=== PATIENT | male | born 1945 | race Caucasian/White ===

== ENCOUNTER 2022-10-23 18:41 | Observation (INO) | payer OTHER, SELFPAY ==
[2022-10-23 18:45] VITALS: BP 134/78; PULSE 63; RESP 18; TEMP 36.8; O2SAT 99; BMI 29.8
--- NOTE | 2022-10-23 19:19 | CRLHL7_ITS ---
For Patients: As a result of the Century Cures Act, medical imaging exams and procedure reports are released immediately into your electronic medical record. You may view this report before your referring provider. If you have questions, please contact your health care provider. Indication: Fall 1 week ago and new right hip hematoma, pain Technique: CT of the right hip with 98 cc of Isovue 370 IV contrast Please note that all CT scans at this facility use dose modulation, iterative reconstruction, and/or weight-based dosing when appropriate to reduce radiation dose to as low as reasonably achievable. Comparison: None. Findings: 4.2 x 6.7 x 14 cm fusiform complex fluid collection lateral to the right iliac bone. There is a blush of contrast within the superior aspect of the collection (axial image 31 and coronal image 64) compatible with active extravasation, likely venous in origin. There is overlying soft tissue stranding. No acute fracture. Normal alignment. Degenerative changes of the hips, lower lumbar spine, and pubic symphysis. No erosive osseous lesion. Prostatomegaly. Normal appendix. Atherosclerotic calcification. Impression: Large 4.2 x 6.7 x 14 cm hematoma lateral to the right iliac bone. Focal blush of contrast within the superior aspect of the collection is compatible with active extravasation, likely venous in origin. No underlying fracture. Please note that all CT scans at this facility use dose modulation, iterative reconstruction, and/or weight-based dosing when appropriate to reduce radiation dose to as low as reasonably achievable. Dictated by Leobardo Recinos MD @ 10/23/2022 10:08:56 PM (Electronically Signed)
[2022-10-23] MEDS: 0.9 % SODIUM CHLORIDE 1000 ml 1,000 ML IV (19:54)
[2022-10-23 19:55] LABS: Hemoglobin* 15.4 gm/dL (13.5-17.5)
[2022-10-23 20:12] LABS: INR 1.24 (0.91-1.10); Partial Thromboplastin Time* 31 Seconds (23-33); Prothrombin Time 16.4 Seconds
[2022-10-23 20:18] LABS: Chloride* 109 mmol/L (96-114); Potassium* 4.6 mmol/L (3.6-5.1); Sodium* 139 mmol/L (135-149)
[2022-10-23 20:21] LABS: Blood Urea Nitrogen* 28 mg/dL (7-30); Calcium* 8.8 mg/dL (8.4-10.6); Carbon Dioxide* 24 mmol/L (20-32); Creatinine* 1.1 mg/dL (0.5-1.5); Est. Creatinine Clearance* 58.99; Estimated Glomerular Filt Rate 70 ml/min; Glucose* 135 mg/dL (60-115)
--- NOTE | 2022-10-23 22:55 | ED.LOWEXIN ---
HPI - Extremity Injury (Lower) General Chief Complaint: Hip Injury/Pain Stated Complaint: hip pain Time Seen by Provider: 10/23/22 18:49 History of Present Illness HPI Narrative: 76-year-old man presenting to the emergency department with intense achy right hip area pain that developed fairly suddenly this evening after driving home from being out to eat. Recalls a fall last week down the back steps which were somewhat frosted over. The only injury he thought he really sustained from that was some soreness in his right shoulder thinking that some how his clavicle was ?hooked?. He describes a jamming his elbow therefore driving his humerus up into his shoulder. A little soreness in a finger also perhaps. Did not hit his head. No neck or back pain. [place] to be so over the course of the week. Today he was flexing thigh more extensively trying to crawl up to restart an old truck; thinks that might have been what precipitated what turns out to be new bleed. Has not noticed any hematuria. No lightheadedness or shortness of breath. Is anticoagulated with Xarelto with last dose yesterday evening. 20 mg daily. This is taken for atrial fibrillation and history of CVA. Related Data Home Medications Medication Instructions Recorded Confirmed atorvastatin 40 mg tablet 40 mg PO DAILY 10/23/22 10/23/22 xaralto 20 mg PO DAILY 10/23/22 10/23/22 Allergies Allergy/AdvReac Type Severity Reaction Status Date / Time No Known Drug Allergies Allergy Verified 10/23/22 18:53 Review of Systems Status of ROS: Reports: 6 or more systems reviewed and unremarkable except as noted in History and below Exam Narrative: Exam Narrative: Pleasant. NAD. Well muscled. Breathing easily. Cranial nerves 2-12 look to be intact. Skin is warm and dry. Head looks to be atraumatic. Neck is supple nontender. Back also nontender. Heart/pulse palpates irregularly irregular. Abdomen is soft nontender no appreciable masses. Lower extremities with trace pretibial edema. Examination of the hips pain in question he is able to raise either leg from the bed without notable difficulty though pain is elicited with flexion of the right thigh. There is a firm hand-sized swelling superior and posterior to the right greater trochanter. Some bruising in this area as well. Examining the right shoulder area. He has no tenderness to palpation about the clavicle nor the AC joint. I do not see any swelling or erythema here. There is a little discomfort to palpation over the inferolateral aspect of the scapula maybe around the infraspinatus. He has very good range of motion strength in the shoulder. Good strength to resisted internal and external rotation. Both movements to elicit a little discomfort though in the anterior medial deltoid area. A quite full in unresisted internal rotation up the back. Some discomfort elicited also in the anterior medial deltoid with Neer's. Negative empty can testing. Const: Vital Signs, click to edit/add: Vital Signs - 24 hr 10/23/22 18:45 Temperature 98.3 F Pulse Rate [Right Pulse Oximeter] 63 Respiratory Rate 18 Blood Pressure [Ri ght Upper Arm] 134/78 Pulse Oximetry 99 Oxygen Delivery Me thod Room Air Documenting provider has reviewed patient's vital signs: yes Course Vital Signs Vital signs: Initial Vital Signs Temperature 98.3 F 10/23/22 18:45 Temperature Source Temporal Artery Scan 10/23/22 18:45 Pulse Rate 63 10/23/22 18:45 Respiratory Rate 18 10/23/22 18:45 Blood Pressure 134/78 10/23/22 18:45 Blood Pressure Mean 96 10/23/22 18:45 Blood Pressure Position Sitting 10/23/22 18:45 Pulse Oximetry 99 10/23/22 18:45 Oxygen Delivery Method 10/23/22 18:45 Vital Signs Temperature 98.3 F 10/23/22 18:45 Pulse Rate 63 10/23/22 18:45 Respiratory Rate 18 10/23/22 18:45 Blood Pressure 134/78 10/23/22 18:45 Pulse Oximetry 99 10/23/22 18:45 Oxygen Delivery Method 10/23/22 18:45 Temperature 98.3 F 10/23/22 18:45 Pulse Rate 63 10/23/22 18:45 Respiratory Rate 18 10/23/22 18:45 Blood Pressure 134/78 10/23/22 18:45 Pulse Oximetry 99 10/23/22 18:45 Oxygen Delivery Method 10/23/22 18:45 MDM - Extremity Injury (Lower) MDM Narrative Medical decision making narrative: In the setting of anticoagulation really does appear to be hematoma involving in the right outer hip. He has been ambulating without significant difficulty until today; I doubt any major bony abnormality/fracture. Shoulder may be more of a labral injury given the described mechanism and exam. Rotator cuff actually seems to be quite intact. I do think contrasted imaging of the right hip is needed to elucidate active bleed. Also obtain hemoglobin and coags. Normal saline IV due to the contrast media. Does not feel he needs anything for pain. Ice pack might be a good idea. IV contrasted CT of right hip reviewed by me shows a large fluid collection at the lateral hip. There is a little central whitening. Radiology over-read -- Impression: Large 4.2 x 6.7 x 14 cm hematoma lateral to the right iliac bone. Focal blush of contrast within the superior aspect of the collection is compatible with active extravasation, likely venous in origin. No underlying fracture. I discussed these findings with General surgery who recommends aggressive compression and serial hemoglobins. Returned to bind this hip with an abdominal binder under which was rolled a hand towel placed over the hematoma. I have spoken with our hospitalist for admission. Next hemoglobin due at approximately 2:00 a.m. Lab Data Attestation: I reviewed the patient's lab results. Labs: Lab Results 10/23/22 10/23/22 10/23/22 Range/Units 19:50 19:50 19:50 Hgb 15.4 (13.5-17.5) gm/dL INR 1.24 H (0.91-1.10) APTT 31 (23-33) Seconds Sodium 139 (135-149) mmol/L Potassium 4.6 (3.6-5.1) mmol/L Chloride 109 (96-114) mmol/L Carbon Dioxide 24 (20-32) mmol/L BUN 28 (7-30) mg/dL Creatinine 1.1 (0.5-1.5) mg/dL Estimated Creat Clear 58.99 Estimated GFR 70 ml/min Glucose 135 H (60-115) mg/dL Calcium 8.8 (8.4-10.6) mg/dL Discharge Plan Discharge Clinical Impression: Anticoagulated, Hematoma of hip, Right shoulder strain Patient Disposition: Admitted As Inpatient Condition: Stable
[2022-10-23 23:38] LABS: SARS PCR* Negative SARS-CoV-2 (Negative)
--- NOTE | 2022-10-24 00:47 | ED.NURSE ---
patient report given to med surg nurse
--- NOTE | 2022-10-24 00:49 | W.PC.EDHO ---
Primary Language: Preferred Language: Orientation Status: [] Alert & Oriented [] Slight Confusion [] Known Dx Dementia Transfers By: [] Assist of 1 [] Assist of 2 [] Lift Active Medications Discontinued Medications Generic Name Dose Route Start Last Admin Trade Name Kriss PRN Reason Stop Dose Admin Sodium Chloride 1,000 mls @ 1,000 mls/hr 10/23/22 19:21 10/23/22 21:38 0.9 % Sodium Chloride 1000 Ml IV 10/23/22 20:20 Infused .Q1H ONE Infusion Description of Symptoms ED Triage Present Problem patient fallen a week ago and has been walking Description around without difficulty was driving home from town and while sitting in the truck suddenly developed this horrible pain in the right hip area . a lot of difficulty to get out of the vehicle. unable to bear weight on the hip. has a bruise from when fell on the hip. takes a blood thinner zaralto 20mg ED Triage Date of Onset of 10/23/22 Symptoms Pain Pain Description [Right Hip] Acute Pain Intensity [Right Hip] 8 Pain Scale Used [Right Hip] Numeric (1 - 10) Oxygen Administration Pulse Oximetry 99 Oxygen Delivery Method Room Air
[2022-10-24 01:00] VITALS: BP 131/84; PULSE 59; RESP 20; O2SAT 96
[2022-10-24 01:21] VITALS: BP 124/62; PULSE 60; RESP 18; TEMP 36.7; O2SAT 98; BMI 30.5
--- NOTE | 2022-10-24 01:24 | PM.IMPN1 ---
Progress Note: A&P Assessment and plan (1) Hematoma of hip: Status: Acute (2) Anticoagulated: Status: Acute (3) Right shoulder strain: Status: Acute Plan [facility] Hospitalist collaboration: I have discussed in detail with ED Dr. Bruner. 76-year-old male who presented to the ED with left hip pain. Patient has history of CVA and is on Xarelto and he last took his Xarelto on 10/22/2022 in the evening. Patient had a fall approximately 1 week ago slipping on stairs and falling on the right side and did not think much of it until tonight he had crampy right-sided hip pain and became worse and difficult to bear weight and also noted swelling on the right hip. He also has some right shoulder pain and feels like maybe he jammed that when he fell. No chest pain or shortness of breath or fever or chills or nausea, vomiting, abdominal pain. Initially only had small bruise about 1 inch, but tonite it had increased. He had no new falls, but did lift leg pretty high getting into his leaf size picker and had taken the garbage out and has long driveway. Current pain 1.5/10. Pain gets worse if ambulates or moves. Laboratory/imaging in the ED: Hemoglobin 15.4. INR 1.24. PTT 31. Sodium 139, potassium 4.6, chloride 109, CO2 24, BUN 28, creatinine 1.1, glucose 135, calcium 8.8. COVID-[address] large 4.2 x 6.7 x 14 cm hematoma lateral to the right iliac bone, focal blush of contrast within the superior aspect of collection is compatible with active extravasation likely venous in origin, no underlying fracture. ED team reported that they discussed with the general surgery team whom recommended compression and serial hemoglobins. PMH/PSH: CVA/Afib on Xarelto, hyperlipidemia Allergies: No known drug allergies. Home medications: Atorvastatin, Xarelto Telemedicine exam: Temp 98.3, heart rate 63, respirate 18, BP 134/78, O2 sat 99% on room air No apparent distress, alert, oriented x3 Follows commands, no lateralizing weakness except some limitation due to left hip pain Pupils equal and reactive, no scleral icterus Lips and mouth are mildly dry Neck trachea midline Heart RRR, no murmurs Lungs clear bilateral no crackles no wheezes Abdomen bowel sounds are positive, soft, nondistended, nontender for nursing palpation Lower extremities no pitting edema b/l, pedal pulses intact for nursing per report, patient can flex/extend his foot without leg pain Right hip currently has abdominal binder in place and did not remove this to continue compression and no erythema/bruising down his leg, no thigh swelling Skin dry Assessment and plan: Right hip pain and hematoma post fall: CT imaging 4.2 x 6.7 x 14 cm hematoma lateral to the right iliac bone and active extravasation likely venous per radiology, no fracture Plan: ED team discussed with general surgery and recommended compression and serial hemoglobins and at this time I will hold Xarelto, patient last took on 10/22/2022. Currently hemodynamically stable. Monitor for worsening pain. As needed pain medication, Tylenol, [place]. Hx of CVA, Hx of Afib: On Xarelto, holding as stated above, rate controlled, sounded regular on exam tonite, patient states he saw Card and was told he not need to go back except keep on Xarelto. He also states his PCP mentioned ? CKD and would possibly need to reduce Xarelto dose thus will need to confirm plan of reducing when able/safe to resume Xarelto. Hyperlipidemia: Statin continued Diet: Regular GI prophylaxis: Not indicated DVT prophylaxis: SCDs, hold anticoagulation as stated above due to hip hematoma CODE STATUS: Full code Please call E Hospitalist with questions Subjective Date Seen: 10/24/22 Exam Const: Vital Signs, click to edit/add: Vital Signs - 24 hr 10/23/22 18:45 10/24/22 01:00 Temperature 98.3 F Pulse Rate [Right Pulse Oximeter] 63 59 L Respiratory Rate 18 20 Blood Pressure [Ri ght Upper Arm] 134/78 131/84 Pulse Oximetry 99 96 Oxygen Delivery Me thod Room Air Room Air Labs Labs: Laboratory Results - last 24 hr 10/23/22 10/23/22 10/23/22 19:50 19:50 19:50 Hgb 15.4 INR 1.24 H APTT 31 Sodium 139 Potassium 4.6 Chloride 109 Carbon Dioxide 24 BUN 28 Creatinine 1.1 Estimated Creat Clear 58.99 Estimated GFR 70 Glucose 135 H Calcium 8.8 SARS-CoV-2 (PCR) 10/23/22 22:51 Hgb INR APTT Sodium Potassium Chloride Carbon Dioxide BUN Creatinine Estimated Creat Clear Estimated GFR Glucose Calcium SARS-CoV-2 (PCR) Negative SARS-CoV-2
[2022-10-24] MEDS: ACETAMINOPHEN 325 MG TABLET 650 MG PO ×2 (01:57→13:34)
[2022-10-24 02:16] LABS: Hemoglobin* 14.3 gm/dL (13.5-17.5)
--- NOTE | 2022-10-24 05:41 | PC.NURSE ---
Admission note: Pt was received to the unit at 0055 on a wheel chair. Alert and conscious on arrival. Assessment and v/s monitored. Pt had abdominal binder from the ED. Dr. Ginette Antonio completed the assessment through [facility]. Pain rated at 2 and Tylenol was given. Pt ambulated independently to and from the BR. Bruising to the right thigh assessed after taking off the binder at 0550 per pt request. Pt had adequate sleep and vitally stable.
[2022-10-24 07:00] VITALS: BP 127/92; PULSE 68; RESP 18; TEMP 36.7; O2SAT 100
[2022-10-24 07:16] LABS: Basophils Absolute Auto 0.04 K/uL (0.00-0.30); Basophils Percent Auto 0.5 % (0.0-3.0); Eosinophils Absolute Auto 0.15 K/uL (0.00-0.50); Eosinophils Percent Auto 1.7 % (0.0-7.0); Hematocrit 42.9 % (37.0-53.0); Hemoglobin* 14.4 gm/dL (13.5-17.5); Immature Granulocytes Abs Auto 0.01 K/uL (0.00-0.30); Immature Granulocytes Pct Auto 0.1 %; Lymphocytes Absolute Auto 1.93 K/uL (0.90-2.90); Lymphocytes Percent Auto 21.9 % (20-44); Mean Corpuscular HGB Conc 34 gm/dL (32-36); Mean Corpuscular Hemoglobin 29 pg (26-34); Mean Corpuscular Volume 87 fL (80-100); Monocytes Percent Auto 9.5 % (0.0-11.0); Neutrophils Absolute Auto 5.84 K/uL (1.7-7.0); Neutrophils Percent Auto 66.3 % (42.0-72.0); Platelet Count* 163 K/uL (140-440); RDW Coefficient of Variation % 13.1 % (11.5-15.5); Red Blood Count 4.91 m/uL (4.30-5.90); White Blood Count* 8.81 K/uL (4.50-11.00)
[2022-10-24 07:17] LABS: Slide Review Reflex No
[2022-10-24 07:49] LABS: Chloride* 110 mmol/L (96-114); Sodium* 141 mmol/L (135-149)
[2022-10-24 07:50] LABS: Potassium* 4.2 mmol/L (3.6-5.1)
[2022-10-24 07:52] LABS: Carbon Dioxide* 24 mmol/L (20-32); Est. Creatinine Clearance* 64.89; Estimated Glomerular Filt Rate 78 ml/min
[2022-10-24 07:53] LABS: Blood Urea Nitrogen* 26 mg/dL (7-30); Calcium* 8.6 mg/dL (8.4-10.6); Glucose* 98 mg/dL (60-115)
[2022-10-24] MEDS: ATORVASTATIN CALCIUM 40 MG TABLET PO (08:39)
--- NOTE | 2022-10-24 09:14 | PM.GSCN ---
History of Present Illness Consult details Date Seen: 10/24/22 Consult date: 10/24/22 Narrative: Patient presented to the emergency department last night for increased swelling and pain over his right hip. He states that 1 week ago he fell and had some bruising over the hip. He was doing well, recovering from that injury with no issue until yesterday afternoon. He was getting up into his truck we also and had a significant increase in the swelling and pain to his hip. He was concerned initially that he may be dislocated his hip and so decided to come into the emergency department. He denies any fevers or chills. He is on Xarelto for atrial fibrillation and history of stroke 5 years earlier. He is very active in lives at home with his . Overnight he had compression applied to the right hip hematoma. He states that the pain is significantly improved in swelling has gone down. No acute concerns. 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 Paroxysmal atrial fibrillation Family History (Updated 10/24/22 @ 08:26 by Lindsay Huffman MD) Father Aortic aneurysm Maternal Grandfather Heart disease Maternal Grandmother Stroke Mother Cancer Social History Highest level of school completed/degree received: some college, no degree Smoking Status: Never smoker Do you use any of these nicotine containing products: None Second hand tobacco smoke exposure: No How often do you have a drink containing alcohol: monthly or less AUDIT-C Alcohol total score: 1 Non-prescribed substance use: denies use Caffeine: Yes service: No Meds Home Medications and Allergies Home Medications Medication Instructions Recorded Confirmed Type atorvastatin 40 mg tablet 40 mg PO DAILY 10/23/22 10/23/22 History xaralto 20 mg PO DAILY 10/23/22 10/23/22 History Allergies Allergy/AdvReac Type Severity Reaction Status Date / Time No Known Drug Allergies Allergy Verified 10/23/22 18:53 Exam Narrative: Exam Narrative: General: Alert and oriented, no acute distress. Respiratory: Equal breath rise bilaterally, maintained on room air CV: Regular rhythm rate, well perfused Extremities: Right hip with some ecchymoses of the skin, no areas of necrosis. Firm hematoma palpated within the subcutaneous space measuring approximately 7 cm x 7 cm in size. Nontender to palpation. No overlying redness or concern for infection. Const: Vital Signs, click to edit/add: Vital Signs - 24 hr 10/23/22 18:45 10/24/22 01:00 10/24/22 01:21 Temperature 98.3 F 98.1 F Pulse Rate [Left P ulse Oximeter] 60 Pulse Rate [Right Pulse Oximeter] 63 59 L Respiratory Rate 18 20 18 Blood Pressure [Ri ght Arm] 124/62 Blood Pressure [Ri ght Upper Arm] 134/78 131/84 Pulse Oximetry 99 96 98 Oxygen Delivery Me thod Room Air Room Air Room Air Results Labs Labs: Abnormal lab results 10/23/22 10/23/22 Range/Units 19:50 19:50 INR 1.24 H (0.91-1.10) Glucose 135 H (60-115) mg/dL Diabetes panel 10/23/22 10/24/22 Range/Units 19:50 06:16 Sodium 139 141 (135-149) mmol/L Potassium 4.6 4.2 (3.6-5.1) mmol/L Chloride 109 110 (96-114) mmol/L Carbon Dioxide 24 24 (20-32) mmol/L BUN 28 26 (7-30) mg/dL Creatinine 1.1 1.0 (0.5-1.5) mg/dL Glucose 135 H 98 (60-115) mg/dL Calcium 8.8 8.6 (8.4-10.6) mg/dL Calcium panel 10/23/22 10/24/22 Range/Units 19:50 06:16 Calcium 8.8 8.6 (8.4-10.6) mg/dL Pituitary panel 10/23/22 10/24/22 Range/Units 19:50 06:16 Sodium 139 141 (135-149) mmol/L Potassium 4.6 4.2 (3.6-5.1) mmol/L Chloride 109 110 (96-114) mmol/L Carbon Dioxide 24 24 (20-32) mmol/L BUN 28 26 (7-30) mg/dL Creatinine 1.1 1.0 (0.5-1.5) mg/dL Glucose 135 H 98 (60-115) mg/dL Calcium 8.8 8.6 (8.4-10.6) mg/dL Adrenal panel 10/23/22 10/24/22 Range/Units 19:50 06:16 Sodium 139 141 (135-149) mmol/L Potassium 4.6 4.2 (3.6-5.1) mmol/L Chloride 109 110 (96-114) mmol/L Carbon Dioxide 24 24 (20-32) mmol/L BUN 28 26 (7-30) mg/dL Creatinine 1.1 1.0 (0.5-1.5) mg/dL Glucose 135 H 98 (60-115) mg/dL Calcium 8.8 8.6 (8.4-10.6) mg/dL All other labs normal. Imaging Abdomen CT scan report/results: report reviewed and image reviewed Assessment and Plan Assessment and plan (1) Hematoma of hip: Status: Acute Plan Patient was admitted overnight for expanding right hip hematoma. This is secondary to trauma and likely from his anticoagulation with Xarelto. On CT imaging there was a small blush, likely from a venous origin. No underlying hip fracture injury was noted. External compression was applied overnight with no increase in swelling, pain improved and hemoglobin stable. On examination there is no evidence of any overlying necrosis or infection. Recommend continued conservative management of this hematoma with alternating ice/heat packs. No strenuous activity for 1 week. Continue to hold Xarelto for 1 week. Anticipate likely discharge later today once patient has ambulated.
[2022-10-24] MEDS: HYDROCODONE-ACETAMIN 5-325 MG 1 TAB PO (10:27)
[2022-10-24 10:59] VITALS: BP 149/97; PULSE 64; RESP 18; TEMP 36.7; O2SAT 100
[2022-10-24 11:04] LABS: Hemoglobin* 14.2 gm/dL (13.5-17.5)
--- NOTE | 2022-10-24 13:34 | P.SS_ITS ---
Same Day Admit/Disch: HPI History of Present Illness Time Seen by Provider: 09:15 Date Seen: 10/24/22 Chief complaint: hip pain Narrative: oRque Elliott is a 76 year old male on Xarelto for h/o CVA and paroxysmal afib who developed a sudden hematoma in his right upper thigh yesterday for which he presented through the emergency department. He has been on Xarelto for several years for paroxysmal atrial fibrillation found in the setting of a stroke. He has not had any further strokes after starting Xarelto. About a week ago he fell on the icy steps in front of his house. At that time he hurt his right arm and shoulder, but does not recall hurting anything else. On Sunday he [place] his [place] [employer] in a truck that they do not use very often and he has to pull himself up to get into the cab of the truck. [place] the way home he noticed pain in his right hip and thigh. It was a struggle once they got home for him to get inside and get to the couch. He tried to get up a little later but was still having pain in that area and noticed that he there was a lump there. At that point he decided to come to the emergency department. He was found to have a hematoma. Same Day Admit/Disch: ROS Review of Systems Review of systems: Ten systems were reviewed, pertinent positives and negatives are in the HPI, in these are otherwise negative. 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 Lifelong nontobacco user. Drinks 2 beers per month. Denies recreational drug use. Full code. Highest level of school completed/degree received: some college, no degree Smoking Status: Never smoker Do you use any of these nicotine containing products: None Second hand tobacco smoke exposure: No How often do you have a drink containing alcohol: monthly or less AUDIT-C Alcohol total score: 1 Non-prescribed substance use: denies use Caffeine: Yes service: No Exam Narrative: Exam Narrative: General: No acute distress. Awake alert oriented x3. He was able to stand up from a sitting position in the chair without assistance HEENT: Normocephalic atraumatic, pupils equally round and reactive to light and accommodation. Oropharynx clear. Mucous membranes are moist. No cervical lymphadenopathy, thyromegaly or carotid bruits. No JVD. Cardiovascular: Regular rate and rhythm. No murmurs, gallops, or rubs. Chest: No increased work of breathing. Clear to auscultation bilaterally. No crackles or wheezes. Abdomen: Bowel sounds present. Soft, nondistended, nontender. No hepatosplenomegaly or masses. Extremities: Firm hematoma approximately 7 cm wide x 8 cm long along the posterior lateral aspect of the right buttock and upper thigh with overlying ecchymosis, no cyanosis or clubbing of feet. Skin: No jaundice, no pallor, no rashes. Const: Vital Signs, click to edit/add: Vital Signs - 24 hr 10/23/22 18:45 10/24/22 01:00 10/24/22 01:21 Temperature 98.3 F 98.1 F Pulse Rate [Left P ulse Oximeter] 60 Pulse Rate [Right Pulse Oximeter] 63 59 L Respiratory Rate 18 20 18 Blood Pressure [Ri ght Arm] 124/62 Blood Pressure [Ri ght Upper Arm] 134/78 131/84 Pulse Oximetry 99 96 98 Oxygen Delivery Me thod Room Air Room Air Room Air 10/24/22 07:00 10/24/22 07:00 10/24/22 10:59 Temperature 98.1 F 98.1 F Pulse Rate [Left P ulse Oximeter] 68 68 64 Pulse Rate [Right Pulse Oximeter] Respiratory Rate 18 18 18 Blood Pressure [Ri ght Arm] 127/92 H 149/97 H Blood Pressure [Ri ght Upper Arm] Pulse Oximetry 100 100 Oxygen Delivery Me thod Room Air Room Air Same Day Admit/Disch: Data Data Completed and Pending Completed studies during hospitalization: Ordering Physician: Bhaskar Bruner M.D. Date of Service: 10/23/22 Procedure(s): CT hip RT w con Accession Number(s): [id number] cc: Provider,Not a Local ; Bhaskar Bruner M.D.~ For Patients: As a result of the Cures Act, medical imaging exams and procedure reports are released immediately into your electronic medical record. You may view this report before your referring provider. If you have questions, please contact your health care provider. Indication: Fall 1 week ago and new right hip hematoma, pain Technique: CT of the right hip with 98 cc of Isovue 370 IV contrast Please note that all CT scans at this facility use dose modulation, iterative reconstruction, and/or weight-based dosing when appropriate to reduce radiation dose to as low as reasonably achievable. Comparison: None. Findings: 4.2 x 6.7 x 14 cm fusiform complex fluid collection lateral to the right iliac bone. There is a blush of contrast within the superior aspect of the collection (axial image 31 and coronal image 64) compatible with active extravasation, likely venous in origin. There is overlying soft tissue stranding. No acute fracture. Normal alignment. Degenerative changes of the hips, lower lumbar spine, and pubic symphysis. No erosive osseous lesion. Prostatomegaly. Normal appendix. Atherosclerotic calcification. Impression: Large 4.2 x 6.7 x 14 cm hematoma lateral to the right iliac bone. Focal blush of contrast within the superior aspect of the collection is compatible with active extravasation, likely venous in origin. No underlying fracture. Please note that all CT scans at this facility use dose modulation, iterative reconstruction, and/or weight-based dosing when appropriate to reduce radiation dose to as low as reasonably achievable. Dictated by Leobardo Recinos MD @ 10/23/2022 10:08:56 PM (Electronically Signed) Labs on day of discharge: Labs from last 24 hours 10/24/22 10/24/22 10/24/22 10:50 06:16 06:16 WBC 8.81 RBC 4.91 Hgb 14.2 14.4 Hct 42.9 MCV 87 MCH 29 MCHC 34 RDW Coeff of Nery 13.1 Plt Count 163 Neut % (Auto) 66.3 Lymph % (Auto) 21.9 Mcclain % (Auto) 9.5 Eos % (Auto) 1.7 Baso % (Auto) 0.5 Neut # (Auto) 5.84 Lymph # (Auto) 1.93 Mcclain # (Auto) 0.80 Eos # (Auto) 0.15 Baso # (Auto) 0.04 INR APTT Sodium 141 Potassium 4.2 Chloride 110 Carbon Dioxide 24 BUN 26 Creatinine 1.0 Estimated Creat Clear 64.89 Estimated GFR 78 Glucose 98 Calcium 8.6 SARS-CoV-2 (PCR) 10/24/22 10/23/22 10/23/22 02:05 22:51 19:50 WBC RBC Hgb 14.3 Hct MCV MCH MCHC RDW Coeff of Nery Plt Count Neut % (Auto) Lymph % (Auto) Mcclain % (Auto) Eos % (Auto) Baso % (Auto) Neut # (Auto) Lymph # (Auto) Mcclain # (Auto) Eos # (Auto) Baso # (Auto) INR 1.24 H APTT 31 Sodium Potassium Chloride Carbon Dioxide BUN Creatinine Estimated Creat Clear Estimated GFR Glucose Calcium SARS-CoV-2 (PCR) Negative SARS-CoV-2 10/23/22 10/23/22 19:50 19:50 WBC RBC Hgb 15.4 Hct MCV MCH MCHC RDW Coeff of Nery Plt Count Neut % (Auto) Lymph % (Auto) Mcclain % (Auto) Eos % (Auto) Baso % (Auto) Neut # (Auto) Lymph # (Auto) Mcclain # (Auto) Eos # (Auto) Baso # (Auto) INR APTT Sodium 139 Potassium 4.6 Chloride 109 Carbon Dioxide 24 BUN 28 Creatinine 1.1 Estimated Creat Clear 58.99 Estimated GFR 70 Glucose 135 H Calcium 8.8 SARS-CoV-2 (PCR) Same Day Admit/Disch: Sum Hospital Course Hospital Course: Dr. Welsh saw patient in consultation and recommended alternating heat and ice, compression as needed, hold Xarelto for 1 week, ambulation and home if doing well later today. He ambulated with PT and did well. I repeated hemoglobin after he ambulated, which is stable. Status at Discharge Functional status at discharge: independent ambulation Time Spent with Patient Time attestation: Total time spent providing and/or coordinating discharge services: Provider Date of admission: 10/24/22 00:51 Primary care physician: Not a Local Provider Consults: 10/24/22 01:44 Consult to Physical Therapy [CONS] Routine Comment: Reason(s) for PT Consult:: Evaluate and Treat Any Restrictions?:: No Restrictions DS: Diagnosis Discharge Diagnosis (1) Hematoma of hip: Status: Acute (2) Anticoagulated: Status: Acute (3) Right shoulder strain: Status: Acute (4) Paroxysmal atrial fibrillation: Status: Chronic Problem details: per [facility] record: [id number] Score for stroke risk is 3, age, CVA Saw Dr. Chow, cardiology, in 05/2018, continued on Xarelto Same Day Admit/Disch: Med Pre-admit Medications Home Medications Medication Instructions Recorded Confirmed Type atorvastatin 40 mg tablet 40 mg PO DAILY 10/23/22 10/23/22 History omeprazole 20 mg capsule,delayed 20 mg PO DAILY PRN 10/24/22 10/24/22 History release rivaroxaban 20 mg tablet (Xarelto) 20 mg PO QPM 10/24/22 10/24/22 History
[2022-10-24 14:32] VITALS: RESP 18; TEMP 36.7
--- NOTE | 2022-10-24 14:57 | PC.NURSE ---
Discharge: Pt. pleasant, alert and oriented x4. VSS, 100% on RA. Pt. rates pain 1/10 when resting but 8/10 when ambulating. PRN Barry administered w/relief, and Acetaminophen see eMAR. Pt's IV removed intact. Discharged today at 1445 accompanied by spouse. Pt. verbalized understanding of discharge instructions and belongings list signed.
--- NOTE | 2022-10-24 21:09 | PC.NURSE ---
[facility] Vicki called the unit concerned about bruising that has now appeared into groin area and half way to knee. States patient is taking Tylenol for pain but area continues to be painful. Discussed these concerns with Dr. Arauz. Spoke with Vicki and relayed Dr. Arauz's thoughts- bruising is to be expected in this situation and will increase with time. If patient has complaints of dizziness, light headedness, etc that would be an indication that a hemoglobin should be rechecked urgently. Patient is not currently having any of these symptoms. She may also call clinic tomorrow to have hemoglobin rechecked if desired. Reviewed discharge instructions with and encouraged heat/ice alternating as discharge mentioned. Explained that if pain was not controlled, the emergency room would be an option as well.
== END 2022-10-24 14:45 | disposition home or self-care (01) ==
LOC: ED 23:13 → MEDSURG 10-24 00:52
PROVIDERS: Family Medicine; Admitting Provider Hospitalist; Emergency Provider Family Medicine; Visit Provider Hospitalist
DX: S70.00XA Contusion of unspecified hip, initial encounter (principal); S46.911A Strain of unspecified muscle, fascia and tendon at shoulder and upper arm level, right arm, initial encounter; Z79.01 Long term (current) use of anticoagulants; I48.0 Paroxysmal atrial fibrillation; M25.551 Pain in right hip; M79.651 Pain in right thigh; E78.5 Hyperlipidemia, unspecified; W10.9XXA Fall (on) (from) unspecified stairs and steps, initial encounter; Z86.73 Personal history of transient ischemic attack (TIA), and cerebral infarction without residual deficits; Z82.49 Family history of ischemic heart disease and other diseases of the circulatory system; Z20.822 Contact with and (suspected) exposure to COVID-19; S70.01XA Contusion of right hip, initial encounter
CPT/HCPCS: 36415; 73701; 80048; 85018; 85025; 85610; 85730; 87635; 96360; 96361; 97116; 97161; 97530; 99284; A9270; G0378; J7030; Q9967